=== PATIENT | female | born 1945 ===

== ENCOUNTER 2017-04-27 09:30 | Outpatient (RCR) | payer OTHER | END 2017-05-16 | disposition home or self-care (01) | LOC: PTY 09:30 | PROVIDERS: ATTEND Internal Medicine | DX: S46.002D Unspecified injury of muscle(s) and tendon(s) of the rotator cuff of left shoulder, subsequent encounter (principal) ==

== ENCOUNTER 2017-05-21 10:00 | Outpatient (RCR) | payer OTHER | END 2017-06-16 | disposition home or self-care (01) | LOC: PTY 10:00 | PROVIDERS: ATTEND Internal Medicine | DX: S46.002D Unspecified injury of muscle(s) and tendon(s) of the rotator cuff of left shoulder, subsequent encounter (principal); X58.XXXD Exposure to other specified factors, subsequent encounter ==

== ENCOUNTER 2017-06-22 08:15 | Outpatient (RCR) | payer OTHER | END 2017-07-16 | disposition home or self-care (01) | LOC: PTY 08:15 | PROVIDERS: ATTEND Internal Medicine | DX: S46.002D Unspecified injury of muscle(s) and tendon(s) of the rotator cuff of left shoulder, subsequent encounter (principal); X58.XXXD Exposure to other specified factors, subsequent encounter ==